=== PATIENT | female | born 1965 | race Caucasian/White ===

== ENCOUNTER 2025-01-09 13:57 | Emergency (ER) | payer OTHER ==
[2025-01-09] MEDS: Cyclobenzaprine 10 MG Tab PO ONE (15:54)
[2025-01-09] MEDS: oxyCODONE 5 MG Tab PO ONE (15:55)
== END 2025-01-09 16:10 | disposition home or self-care (01) ==
LOC: MW.ED 13:57
DX: S52.502A Unspecified fracture of the lower end of left radius, initial encounter for closed fracture (principal); I10 Essential (primary) hypertension; E78.00 Pure hypercholesterolemia, unspecified; J44.89 Other specified chronic obstructive pulmonary disease; E11.9 Type 2 diabetes mellitus without complications; F17.200 Nicotine dependence, unspecified, uncomplicated; Z88.0 Allergy status to penicillin; Z88.8 Allergy status to other drugs, medicaments and biological substances; Z79.84 Long term (current) use of oral hypoglycemic drugs; Z79.899 Other long term (current) drug therapy; W10.9XXA Fall (on) (from) unspecified stairs and steps, initial encounter
CPT/HCPCS: 73110; 99283; A9270; 99282